=== PATIENT | female | born 1970 | race Caucasian/White ===

== ENCOUNTER 2018-10-26 10:00 | Emergency (ER) | payer BC ==
--- NOTE | 2018-10-26 10:41 | UC ---
Respiratory Complaint HPI - HPI Summary HPI Summary: 48 yo female presents with sinus pain/pressure/congestion and post nasal drip for the last week. She has been taking sudafed with mild relief, but her symptoms return when the medicine wears off. Denies fever, chills, sore throat, cough, SOB. - History of Current Complaint Chief Complaint: UCRespiratory Stated Complaint: SINUS ISSUE Time Seen by Provider: 10/26/18 10:41 Hx Obtained From: Patient Hx Last Menstrual Period: 09/2018 Onset/Duration: Gradual Onset Severity Initially: Moderate Severity Currently: Moderate Pain Intensity: 7 Pain Scale Used: 0-10 Numeric - Allergies/Home Medications Allergies/Adverse Reactions: Allergies Allergy/AdvReac Type Severity Reaction Status Date / Time No Known Allergies Allergy Verified 10/26/18 10:15 Home Medications: Home Medications Pseudoephedrine HCl [Sudafed] 1 tab PO ONCE PRN 10/26/18 [History Confirmed ] PMH/Surg Hx/FS Hx/Imm Hx - Additional Past Medical History Additional PMH: None - Surgical History Surgical History: None - Family History Known Family History: Positive: None - Social History Occupation: Employed Full-time Lives: With Family Alcohol Use: None Substance Use Type: Marijuana Substance Use Comment - Amount & Last Used: twice a week Smoking Status (MU): Light Every Day Tobacco Smoker Amount Used/How Often: 4-5cig/day Household Exposure Type: Cigarettes Review of Systems All Other Systems Reviewed And Are Negative: Yes Constitutional: Positive: Negative Skin: Positive: Negative Eyes: Positive: Negative ENT: Positive: Nasal Discharge, Sinus Congestion, Sinus Pain/Tenderness Respiratory: Positive: Negative Cardiovascular: Positive: Negative Gastrointestinal: Positive: Negative Neurovascular: Positive: Negative Neurological: Positive: Negative Psychological: Positive: Negative Physical Exam - Summary Physical Exam Summary: GENERAL: NAD. WDWN. No pain distress. SKIN: No rashes, sores, lesions, or open wounds. HEENT: Head: AT/NC Eyes: EOM intact. Conjunctiva clear without inflammation or discharge. Ears: Hearing grossly normal. TMs intact, no bulging, erythema, or edema. Nose: Nasal mucosa mildly swollen and erythematous with yellow/ clear discharge. TTP maxillary and frontal sinus. Positive post nasal drip Throat: Posterior oropharynx without exudates, erythema, or tonsillar enlargement. Uvula midline. NECK: Supple. Nontender. No lymphadenopathy. CHEST: CTAB. No r/r/w. No accessory muscle use. Breathing comfortably and in no distress. CV: RRR. Without m/r/g. Pulses intact. NEURO: Alert. PSYCH: Age appropriate behavior. Triage Information Reviewed: Yes Vital Signs: Initial Vital Signs Temp 98.6 F 10/26/18 10:11 Pulse 75 10/26/18 10:11 Resp 18 10/26/18 10:11 BP 140/85 10/26/18 10:11 Pulse Ox 99 10/26/18 10:11 Vital Signs Reviewed: Yes Respiratory Course/Dx - Course Course Of Treatment: Sinusitis - Differential Dx/Diagnosis Provider Diagnosis: Sinusitis Discharge - Sign-Out/Discharge Documenting (check all that apply): Patient Departure All imaging exams completed and their final reports reviewed: No Studies - Discharge Plan Condition: Stable Disposition: HOME Prescriptions: Amoxicillin PO (*) [Amoxicillin 875 MG (*)] 875 mg PO BID #14 tab guaiFENesin ER TAB [Mucinex*] 600 mg PO BID #30 tab.er Patient Education Materials: Sinusitis (ED) Referrals: No Primary Care Phys,NOPCP [Primary Care Provider] - Additional Instructions: If you develop a fever, shortness of breath, chest pain, new or worsening symptoms - please call your PCP or go to the ED. Your blood pressure was high at todays visit. Please see your primary provider within 4 weeks for recheck and re-evaluation. - Billing Disposition and Condition Condition: STABLE Disposition: Home
== END 2018-10-26 11:04 | disposition home or self-care (01) ==
LOC: UCEAST 10:00
DX: J32.9 Chronic sinusitis, unspecified (principal); F17.210 Nicotine dependence, cigarettes, uncomplicated
CPT/HCPCS: 99201; G0463

== ENCOUNTER 2021-07-12 10:45 | Observation (INO) ==
[~2021-07-12 10:45] MED LIST: Buffered Lidocaine 1% SYRIN 1 ml INTRADERM ONE; Lactated Ringers 1000 ml BAG 1,000 ML IV SCH
[2021-07-12] MEDS ORDERED: ceFAZolin VIAL VIAL ONE (11:06)
[2021-07-12] MEDS ORDERED: Gelfoam 12-7 ADSORBABL SPONGE ONE (11:06)
[2021-07-12] MEDS ORDERED: Thrombin 5,000 UNITS 1 APPLIC KIT - topical use - TOPICAL ONE (11:06)
[2021-07-12] MEDS ORDERED: ceFAZolin 2 GM PREMIX 2 GM/50 ML BAG ONE (11:09)
[2021-07-12] MEDS ORDERED: Propofol 10 MG/ML 20 ML BTL ONE ×2 (11:27→11:59)
[2021-07-12] MEDS ORDERED: fentaNYL 250 mcg/5 ml 50 MCG/ML 5 ml VIAL (250 MCG) ONE (11:27)
[2021-07-12] MEDS ORDERED: Midazolam 2 mg/2 ml VIAL 1 mg/ml 2 ml VIAL (2 mg) ONE (11:27)
[2021-07-12] MEDS ORDERED: Rocuronium 50 mg VIAL 10 mg/ml 5 ml VIAL (50 mg) ONE (11:27)
[2021-07-12 11:49] LABS: Activated Partial Thrombo Time 37.7 seconds (26.0-38.0); INR 1.01 (0.86-1.15)
[2021-07-12] MEDS ORDERED: Dexamethasone IV 4 MG/ML VIAL 1 ml VIAL ONE (13:28)
[2021-07-12] MEDS ORDERED: Ondansetron 4 mg VIAL 2 MG/ML 2 ml VIAL ONE (13:28)
[2021-07-12] MEDS ORDERED: Ondansetron 4 mg VIAL 2 MG/ML 2 ml VIAL IV PRN (13:53)
[2021-07-12] MEDS ORDERED: Morphine 2 MG/ML SYRINGE IV PRN (13:59)
[2021-07-12] MEDS ORDERED: Benzocaine/Menthol LOZ PO PRN (13:59)
[2021-07-12] MEDS ORDERED: Polyethylene Glycol 3350 17 GM PACKET PO PRN (13:59)
[2021-07-12] MEDS ORDERED: Albuterol 2.5mg/3 ml (0.083%) NEB.SOLN INH PRN (13:59)
[2021-07-12] MEDS ORDERED: Morphine 4 MG/ML VIAL (1 ml) ONE ×2 (14:00→15:47)
[2021-07-12] MEDS ORDERED: fentaNYL 100 mcg/2 ml 50 MCG/ML VIAL ONE ×2 (14:00→14:11)
[2021-07-12] MEDS: fentaNYL 100 mcg/2 ml 50 MCG/ML VIAL IV PRN ×4 (14:00→14:58)
[2021-07-12] MEDS ORDERED: NS 0.9% 1000 ml BAG 1,000 ML IV SCH (14:00)
[2021-07-12] MEDS ORDERED: Acetaminophen IV 1 GM/100ML 100 ML IV ONE (14:13)
[2021-07-12] MEDS: Acetaminophen IV 1 GM/100ML 100 ML IV SCH ×2 (14:15→22:20)
[2021-07-12] MEDS: Morphine 4 MG/ML VIAL (1 ml) IV PRN ×4 (15:50→16:48)
[2021-07-12] MEDS ORDERED: hydrALAZINE 20 mg/ml 1 ML Vial IV ONE (17:06)
[2021-07-12] MEDS: hydrALAZINE 20 mg/ml 1 ML Vial IV IV SLOW PU ONE ×2 (17:18→17:52)
[2021-07-12] MEDS: ceFAZolin 2 GM in NS PREMIX 2 GM/100 ML BAG IVPB SCH (21:10)
[2021-07-12] MEDS: Magnesium Hydroxide LIQ 30 ML UDC PO SCH (21:11)
[2021-07-13] MEDS: ceFAZolin 2 GM in NS PREMIX 2 GM/100 ML BAG IVPB SCH ×2 (03:48→11:53)
[2021-07-13] MEDS: Acetaminophen IV 1 GM/100ML 100 ML IV SCH (05:48)
[2021-07-13] MEDS: Magnesium Hydroxide LIQ 30 ML UDC PO SCH (08:54)
[2021-07-13] MEDS ORDERED: DULoxetine DR 60 mg CAP PO SCH (09:00)
[2021-07-13] MEDS ORDERED: Enoxaparin 40 MG/0.4 ML SYR SUBCUT SCH (09:00)
[2021-07-13 11:30] VITALS: BP 133/79
== END 2021-07-13 14:15 | disposition home or self-care (01) ==
LOC: SSU 10:45 → OR 10:45
PROVIDERS: ADMIT Neurological Surgery; ATTEND Neurological Surgery